=== PATIENT | female | born 1955 | race Caucasian/White ===

== ENCOUNTER 2016-09-18 08:24 | Day surgery (SDC) | payer BC ==
--- NOTE | ~2016-09-18 | EGD ---
EGD REPORT [facility] [address] [place] [id number] NAME: JAY MENA : 57 STATUS : REG [place]#: [id number] AGE: 61 ADM/REG DATE : 09/18/16 MR#: [id number] REPORT SERV DATE: 09/18/16 DICTATED BY: ARCHIE ROUSE DATE: 09/18/16 REPORT STATUS : Draft TRANSCRIBED BY: [facility] DATE: 09/18/16 End[facility] Center Patient Name: Jay Mena Date of : 1955 Attending MD: ARCHIE ROUSE MD Procedure Date No Time: 09/18/2016 Procedure: Colonoscopy Indications: Screening for colorectal malignant neoplasm, This is the patient's first colonoscopy Referring MD: Александр EISENBERG WILLIAM J. MOSS Medicines: See the Anesthesia note for documentation of the administered medications Complications: No immediate complications. Procedure: Pre-Anesthesia Assessment: - ASA Grade Assessment: III - A patient with severe systemic disease. After I obtained informed consent, the scope was passed under direct vision. Throughout the procedure, the patient's blood pressure, pulse, and oxygen saturations were monitored continuously. The PCF [id number] was introduced through the anus and advanced to the cecum, identified by appendiceal orifice and ileocecal valve. The colonoscopy was performed without difficulty. The patient tolerated the procedure well. The quality of the bowel preparation was adequate. Findings: The perianal and digital rectal examinations were normal. Diverticula were found in the sigmoid colon. Internal hemorrhoids were found during retroflexion and were large. Impression: - Diverticulosis in the sigmoid colon. - Internal hemorrhoids. Recommendation: - Patient has a contact number available for emergencies. The signs and symptoms of potential delayed complications were discussed with the patient. Return to normal activities tomorrow. Written discharge instructions were provided to the patient. - Regular diet. - Continue present medications. - Repeat colonoscopy in 10 years for screening purposes. Sooner if Dr Choudhury does genetic testing that is positive. Procedure Code(s): --- Professional --- EGD REPORT [address] [address] NAME: JAY MENA : 57 STATUS : REG [facility] [place] PAT#: [id number] AGE: 61 ADM/REG DATE : 09/18/16 MR#: [id number] REPORT SERV DATE: 09/18/16 DICTATED BY: ARCHIE ROUSE DATE: 09/18/16 REPORT STATUS : Draft TRANSCRIBED BY: [employer] DATE: 09/18/16 16233, Colonoscopy, flexible, proximal to splenic flexure; diagnostic, with or without collection of specimen(s) by brushing or washing, with or without colon decompression (separate procedure) Diagnosis Code(s): --- Professional --- K64.8, Other hemorrhoids K57.30, Diverticulosis of large intestine without perforation or abscess without bleeding Z12.11, Encounter for screening for malignant neoplasm of colon CPT copyright 2013 [employer]. All rights reserved. The codes documented in this report are preliminary and upon program director/morning show host review may be revised to meet current compliance requirements. Archie Rouse MD ARCHIE ROUSE MD 09/18/2016 10:39 AM This report has been signed electronically. Number of Addenda: 0 Note Initiated On: 09/18/2016 10:00 AM Scope Withdrawal Time 0 hours 7 minutes 35 seconds [id number] [place] [id number]
[~2016-09-18 08:24] MED LIST: ACET500CAP PO; AMARYL4 PO; COZ50 PO; FLOVENT44 INH; FLUCON150 PO; GLUCOPHAGE1000 MG PO; GLUCPH PO; IRON PO; NICODERM C21 MG/241 TOP; PCET PO; PRILOSEC40 MG PO; VENTOLIN HFA INH; VITAMIN D2000 UNIT PO
== END 2016-09-18 23:59 | disposition home or self-care (01) ==
LOC: DMU 08:24
PROVIDERS: Internal Medicine Gastroenterology
PROC: 0DJD8ZZ Inspection of Lower Intestinal Tract, Via Natural or Artificial Opening Endoscopic (ICD-10-PCS; principal; 2016-09-18 10:30)
DX: Z12.11 Encounter for screening for malignant neoplasm of colon (principal); K64.8 Other hemorrhoids; K57.30 Diverticulosis of large intestine without perforation or abscess without bleeding; I10 Essential (primary) hypertension; E11.9 Type 2 diabetes mellitus without complications; E66.9 Obesity, unspecified; Z85.42 Personal history of malignant neoplasm of other parts of uterus; Z90.49 Acquired absence of other specified parts of digestive tract; Z88.5 Allergy status to narcotic agent; Z79.899 Other long term (current) drug therapy; Z79.84 Long term (current) use of oral hypoglycemic drugs
CPT/HCPCS: 82962; J2250